=== PATIENT | male | born 1970 | race Caucasian/White ===

== ENCOUNTER 2017-07-01 23:56 | Inpatient (IN) | payer OTHER ==
[~2017-07-01] VITALS: Ht 182.9 cm; Wt 106.7 kg
[2017-07-02] VITALS (10 sets, daily range): BP systolic 135–169; BP diastolic 79–94; PULSE 83–90; RESP 18–20; Ht 182.9 cm; Wt 106.7 kg
[2017-07-02] MEDS ORDERED: VANCOMYCIN IV PER PHARMACY XX SCH (04:00)
[2017-07-02] MEDS ORDERED: LORAZEPAM 2 MG INJ IV PRN (04:00)
[2017-07-02] MEDS ORDERED: ALPRAZOLAM 0.25 MG TAB PO PRN (04:00)
[2017-07-02] MEDS ORDERED: hydrALAzine 20 MG INJ IV PRN (04:00)
[2017-07-02] MEDS ORDERED: ACETAMINOPHEN 325 MG TAB PO PRN (04:00)
[2017-07-02] MEDS ORDERED: ONDANSETRON 4 MG INJ IV PRN (04:00)
[2017-07-02] MEDS ORDERED: GLUCAGON 1 MG INJ IM PRN (04:15)
[2017-07-02] MEDS ORDERED: GLUCOSE GEL 15 GRAM TUBE PO PRN ×2 (04:15)
[2017-07-02] MEDS ORDERED: DEXTROSE 50% 50 ML SYRINGE IV PRN ×2 (04:15)
[2017-07-02] MEDS ORDERED: GLUCOSE GEL 15 GRAM TUBE BUCCAL PRN (04:15)
--- NOTE | 2017-07-02 04:37 | HP ---
Date/Time of Note Date/Time of Note DATE: 07/02/17 TIME: 04:10 Assessment/Plan VTE Prophylaxis VTE Prophylaxis Intervention: heparin Lines/Catheters IV C[facility]ter Type ([facility] Peripheral IV Urinary Cath still in place: No Assessment/Plan Assessment/Plan 1. Status post sepsis (per result from the [facility]): Likely secondary to right foot osteomyelitis -Patient was diagnosed with osteomyelitis 4 years ago and has had surgeries in the past. He has been taking oral antibiotic (rifampin and Bactrim) for the past 1 months and the ulcers on the plantar side of his R foot have been healing well. -He will be placed on IV antibiotic. Will obtain x-ray of his right foot. Will place an ID consult to see if he needs to discharged with IV antibiotic, but again as mentioned above he has been doing well with his oral antibiotics. He follows up regularly with his electrical estimator. Will consider podiatry evaluation in-house. -Follow-up on the blood culture and wound culture results -Wound care consult will be placed 2. Chronic kidney disease vs Acute (prerenal from hypotension) -Creatinine was 1.69 at the outside hospital. He will receive IV fluid. Will place a nephrology consult and obtain a renal ultrasound. 3. Insulin-dependent diabetes -We will check A1c, we will adjust insulin as needed 4. History of hypertension: - Patient was actually hypotensive at the outside hospital. Will not initiate blood pressure medication right at this time. Will monitor for now 5. History of dyslipidemia -We will check fasting lipids in the morning. Continue Lipitor HPI/ROS Admit Date/Time Admit Date/Time Jul 02, 2017 at 01:58 Hx of Present Illness This is a 46-year-old male with a history of hypertension, insulin-dependent diabetes, dyslipidemia, right foot osteomyelitis and probable PTSD who initially presented to [facility] after he was sent by his PMD for evaluation of hypotension. Patient was at. [facility] being screened for PTSD when he was found to be hypotensive. He initially went to [facility] and then transferred here to [facility] because of insurance reason. Patient's only complaint is chronic nausea and also complained of an episode of vomiting yesterday morning. For his chronic nausea, he he saw a passenger booking clerk and had an EGD last week on Wednesday. He does not know the result. Currently he said he is feeling well and denies chest pain, shortness of breath, fever, chills, abdominal pain or urinary urinary symptoms. Patient, for the past 1 month has been taking rifampin and Bactrim for right foot osteomyelitis. He was diagnosed with osteomyelitis 4 years ago and had surgery on a part of the bone on the lateral aspect of his right foot. He has 2 healing ulcers on the plantar aspect of his right foot and well-healed ulcer on the plantar side of his left foot. He follows up regularly with his electrical estimator. At [facility], he had blood pressure as low as 75/51 with a heart rate in the low 100s. His blood pressure normalized after IV fluid boluses. His initial lactic acid was 3.8 which decreased to 2.5. WBC was 3.4, sodium 131, creatinine 1.69, BUN 18 and his magnesium was 1.4. . PMH/Family/Social Past Medical History Medical History: diabetes, high cholesterol, hypertension Past Surgical History Past Surgical Hx: other (Right foot surgery for osteomyelitis) Social History Alcohol Use: none Smoking Status: Never smoker Drug Use: none Exam/Review of Systems Vital Signs Vitals Vital Signs Date Time Temp Pulse Resp B/P Pulse Ox O2 Delivery O2 Flow Rate FiO2 07/02/17 02:13 90 Exam Constitutional: alert, oriented, well developed Head: atraumatic, normocephalic Eyes: EOMI, PERRL Respiratory: clear to auscultation, normal air movement Cardiovascular: other (Tachycardic with regular rhythm) Gastrointestinal: non-tender, soft Medications Medications Current Medications Hydralazine HCl (Apresoline) 10 mg Q4H PRN IV ELEVATED SYSTOLIC BP; Start at 04:00 Ondansetron HCl (Zofran Inj) 4 mg Q6H PRN IV NAUSEA AND/OR VOMITING; Start 07/02 at 04:00 Alprazolam (Xanax) 1 mg Q8H PRN PO ANXIETY; Start 07/02/17 at 04:00 Lorazepam (Ativan) 1 mg Q4H PRN IV ANXIETY; Start 07/02/17 at 04:00 Acetaminophen 650 mg 650 mg Q6H PRN PO PAIN AND OR ELEVATED TEMP; Start at 04:00 Cefepime HCl 50 ml @ 100 mls/hr Q12 IVPB ; Start 07/02/17 at 09:00 Vancomycin HCl/ Sodium Chloride (Vancocin/NS) 500 ml @ 125 mls/hr ONCE ONCE IVPB ; Start 07/02/17 at 05:00; Stop 07/02/17 at 08:59 Diagnostic Test (Pha) (Accu-Chek) 1 ea 02 XX ; Start 07/03/17 at 02:00 Insulin Glargine (Lantus) 10 unit DAILY@08 SC ; Start 07/02/17 at 08:00 Miscellaneous Information 1 ea NOTE XX ; Start 07/02/17 at 04:15 Glucose (Glutose) 15 gm Q15M PRN PO DECREASED GLUCOSE; Start 07/02/17 at 04:15 Glucose (Glutose) 22.5 gm Q15M PRN PO DECREASED GLUCOSE; Start 07/02/17 at 04:15 Dextrose (D50w Syringe) 25 ml Q15M PRN IV DECREASED GLUCOSE; Start 07/02/17 at 04:15 Dextrose (D50w Syringe) 50 ml Q15M PRN IV DECREASED GLUCOSE; Start 07/02/17 at 04:15 Glucagon (Glucagen) 1 mg Q15M PRN IM DECREASED GLUCOSE; Start 07/02/17 at 04:15 Glucose (Glutose) 15 gm Q15M PRN BUCCAL DECREASED GLUCOSE; Start 07/02/17 at 04: 15 FELIPA NAIR MD Jul 02, 2017 04:21
[2017-07-02] MEDS ORDERED: VANCOMYCIN 2 GM in SOD CHLORIDE 0.9% 500 ML IVPB ONE (05:00)
[2017-07-02] MEDS: INSULIN ASPART [NOVOLOG] 3 ML PEN SC SCH ×2 (08:00→11:53)
[2017-07-02] MEDS ORDERED: INSULIN GLARGINE [LANtus] 3 ML PEN SC SCH (08:00)
[2017-07-02 08:50] LABS: BASOPHILS % 0.5 % (0.0-2.0); EOSINOPHILS # 0.2 10^3/ul (0.0-0.5); EOSINOPHILS % 2.6 % (0.0-7.0); HEMATOCRIT 32.3 % (42.0-52.0); HEMOGLOBIN 10.5 g/dl (14.0-18.0); LYMPHOCYTES % 32.7 % (15.0-51.0); MEAN CORPUSCULAR HGB CONC 32.5 g/dl (32.0-37.0); MEAN CORPUSCULAR VOLUME 86.1 fl (82.0-101.0); MEAN PLATELET VOLUME 9.5 fl (7.4-10.4); MONOCYTE # 0.4 10^3/ul (0.3-0.9); MONOCYTES % 5.6 % (0.0-11.0); NEUTROPHIL # 3.6 10^3/ul (1.6-7.5); NEUTROPHILS % 58.4 % (39.0-77.0); PLATELET COUNT 182 10^3/UL (140-415); RED BLOOD COUNT 3.75 10^6/ul (4.70-6.10); RED CELL DISTRIBUTION WIDTH 12.4 % (11.5-14.5); WHITE BLOOD COUNT 6.2 10^3/ul (4.8-10.8)
[2017-07-02] MEDS ORDERED: CEFEPIME 1GM/50 ML (PMX) 50 ML IVPB SCH (09:00)
[2017-07-02] MEDS ORDERED: HEPARIN 5,000 UNIT/0.5 ML VIAL SC SCH (09:00)
[2017-07-02 09:13] LABS: CHOL/HDL RATIO 4.8 RATIO
[2017-07-02 09:17] LABS: CALCIUM 7.9 mg/dl (8.4-10.2); CREATININE 1.12 mg/dl (0.61-1.24); MAGNESIUM 1.4 mg/dl (1.7-2.5); PHOSPHORUS 2.8 mg/dl (2.5-4.9); POTASSIUM 4.5 mmol/L (3.5-5.1)
[2017-07-02 09:24] LABS: ADD UMIC NO; UR ASCORBIC ACID NEGATIVE (NEGATIVE); UR BILIRUBIN (Dip) NEGATIVE (NEGATIVE); UR BLOOD (Dip) NEGATIVE (NEGATIVE); UR CLARITY CLEAR (CLEAR); UR COLOR YELLOW (YELLOW); UR GLUCOSE (Dip) 1+ mg/dL (NEGATIVE); UR KETONES (Dip) NEGATIVE (NEGATIVE); UR LEUKOCYTE ESTERASE (Dip) NEGATIVE Leu/ul (NEGATIVE); UR NITRITE (Dip) NEGATIVE (NEGATIVE); UR SPECIFIC GRAVITY (Dip) 1.013 (1.003-1.030); UR TOTAL PROTEIN (Dip) NEGATIVE (NEGATIVE); UR UROBILINOGEN (Dip) NEGATIVE (NEGATIVE)
--- NOTE | 2017-07-02 09:42 | RADRPT ---
PROCEDURE: XR bilateral feet. CLINICAL INDICATION: Bilateral foot pain. TECHNIQUE: Three views of each foot. Frontal, oblique, and lateral. Total of six views. COMPARISON: None. 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 There is no fracture or dis location. There is no lytic or blastic lesion. The articular surfaces are intact. Vascular calcif ications are present consistent with atherosclerosis. On the left side, there is no fracture or dislocation. There is no lytic or blastic lesion. The ar ticular surfaces are intact. Vascular calcifications are present consistent with atherosclerosis. IMPRESSION: 1. Atherosclerosis. 2. 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 3. Otherwise unremarkable images of both feet. RPTAT: QQ .Beto Dias MD, MD Date Time Electronically viewed and signed by .Beto Dias MD, on 07/02/2017 09:42 .R/
[2017-07-02] MEDS ORDERED: MAGNESIUM SULFATE 2 GM/50 ML 50 ML IVPB ONE (10:30)
--- NOTE | 2017-07-02 14:15 | CONS ---
DATE OF ADMISSION: 07/02/2017 DATE OF CONSULTATION: 07/02/2017 REASON FOR CONSULTATION: Acute kidney injury. REFERRING PHYSICIAN:: Dr. Burk HISTORY OF PRESENT ILLNESS: This is a 46-year-old male with a past medical history of hypertension, diabetes, dyslipidemia, history of right foot osteomyelitis, who presented to [facility] by his primary care physician for evaluation of hypertension. The patient was initially at [facility] for PTSD and was found to be hypertensive, was taken to the hospital. The patient was then transferred from [facility] to [facility] for . The patient states he has not been feeling well. Denies any chest pain, shortness of breath, fevers, chills. The patient recently has been taking rifampin and Bactrim for right foot osteomyelitis which was diagnosed 4 years ago. In terms of patient's renal history, the patient states he has had normal renal function. The patient's renal function at the outside hospital showed sodium 131, creatinine 1.69, BUN 18. The patient denies any hemoptysis, hematemesis, hematochezia. PAST MEDICAL HISTORY: History of diabetes, hypertension, dyslipidemia. PAST SURGICAL HISTORY: Right foot surgery. SOCIAL HISTORY: Does not drink, smoke, or do drugs. FAMILY HISTORY: Noncontributory. MEDICATION: The patient's medications have been reviewed. REVIEW OF SYSTEMS: Fourteen point review of systems conducted. Pertinent positives in HPI, otherwise negative. PHYSICAL EXAMINATION: VITAL SIGNS: Blood pressure is 142/92, respirations 20, pulse 89, temperature 98.1. HEENT: Head is normocephalic. Pupils are reactive to light. NECK: Supple. HEART: Regular rate. LUNGS: Diminished breath sounds at the base. ABDOMEN: Soft, nontender to palpation. No rebound or guarding. EXTREMITIES: Negative for clubbing, cyanosis. No edema. Positive right foot wound. DERMATOLOGIC: No rashes. MUSCULOSKELETAL: No joint effusion. LABORATORY: Shows a bland urinalysis. Sodium 136, potassium 4.5, BUN 19, creatinine 1.2, magnesium 1.4. Hemoglobin A1c 7.7. White count 6.2, hemoglobin 10.5, hematocrit 32.3, platelet count 182. Imaging studies: Foot x-ray reviewed showed congenital deformity, otherwise unremarkable. ASSESSMENT AND PLAN: This is a 46-year-old male who presents with: 1. Nonoliguric acute kidney injury with unknown baseline creatinine. Etiology is likely hemodynamics, possible Bactrim effect. The patient's renal function has improved with IV fluids and discontinuing Bactrim. The patient's urinalysis is bland. At this point, will check urine electrolytes. Otherwise continue supportive care. Renally dose medications. Avoid nephrotoxins. 2. Anemia. Monitor H and H levels. 3. Mineral bone disorder. Monitor calcium and phosphorus levels. 4. Hypomagnesemia. Replete magnesium sulfate. 5. Hypertension. SIRS. Possible sepsis. The patient is on broad-spectrum antibiotics, status post IV fluids. Will continue to monitor. 6. History of right foot osteomyelitis. 7. Diabetes. Continue Accu-Chek and sliding scale. 8. History of hypertension. 9. Dyslipidemia. Continue statin therapy. 10. Thank you, Dr. Vital, for this interesting consult. It will be a pleasure to follow the patient with you throughout the hospital course. Dictated By: Raj Mann DO /arcadio/ladonna /Document#: [id number]
[2017-07-02] MEDS ORDERED: MAG SULFATE 2GM IN 50 ML IVPB ONE (16:00)
[2017-07-02] MEDS ORDERED: MAGNESIUM SULFATE (GM) 50% 2 ML INJ IM ONE (16:00)
[2017-07-02] MEDS ORDERED: MAGNESIUM SULFATE 4 GM/100 ML 100 ML IVPB ONE (16:00)
--- NOTE | 2017-07-02 16:13 | PDOCDIS ---
Discharge Instructions CONDITION Patient Condition: Good HOME CARE INSTRUCTIONS: Special Diet: Diabetic diet ACTIVITY: Activity Restrictions: No Restrictions FOLLOW UP/APPOINTMENTS Follow-up Plan FOLLOW UP WITH YOUR PRIMARY CARE PHYSICIAN IN 1-2 WEEKS YOJANA REAL Jul 02, 2017 16:13
--- NOTE | 2017-07-02 16:40 | DS ---
Date/Time of Note Date/Time of Note DATE: 07/02/17 TIME: 16:30 Discharge Summary Admission/Discharge Info Admit Date/Time Jul 02, 2017 at 01:58 Discharge Date/Time July 02, 2017 Discharge Diagnosis 1. Status post sepsis (per result from the [facility]): Likely secondary to right foot osteomyelitis-resolved -Continue home p.o. antibiotics, follow-up with deputy court in clinic -X-ray of the foot shows significant findings 2. Acute on chronic kidney disease likely to dehydration-resolved with IV fluid -Nephrology consultation appreciated -Outpatient monitoring 3. Insulin-dependent diabetes with neuropathy and gastroparesis -A1c at 7.7, continue home regimen 4. Nausea and vomiting secondary to gastroparesis from diabetes -Patient prescribed Reglan by his ceo but has not picked up the prescription as of yet, patient told to pick it up 5. History of dyslipidemia -We will check fasting lipids in the morning. Continue Lipitor 6. History of hypertension: BP currently stable without medication Patient Condition: Good Hospital Course Patient is a 46-year-old male with a history of hypertension, insulin-dependent diabetes, dyslipidemia, right foot osteomyelitis and probable PTSD who initially presented to [facility] after he was sent by his PMD for evaluation of hypotension. Patient has been having a lot of nausea , patient appears to been diagnosed with gastroparesis and was prescribed Reglan but has not picked that up as of yet. Patient was transferred over with diagnosis of sepsis, of note patient had no leukocytosis or fever on arrival to [facility]. Patient is on chronic p.o. antibiotics for his right foot infection. Patient x-ray of the foot showed no significant findings. Patient' s nausea vomiting resolved, patient magnesium was low and was replenished. On day of discharge patient had no evidence of sepsis he had no further acute complaints. Patient was found to be stable for discharge with outpatient follow -up with his PCP, deputy court and ceo. On the day of discharge patient's vitals, labs and physical exam are stable and his questions are answered. Home Meds No Active Prescriptions or Reported Meds Primary Care Provider Care Physician No Primary Time spent on discharge: > 30 minutes YOJANA REAL Jul 02, 2017 16:40
[2017-07-02] MEDS ORDERED: VANCOMYCIN 1.5 GM in SOD CHLORIDE 0.9% 250 ML IVPB SCH (18:00)
[2017-07-02] MEDS ORDERED: ATORVASTATIN 20 MG TAB PO SCH (21:00)
[2017-07-03] MEDS ORDERED: ACCU-CHEK XX SCH ×2 (02:00)
[2017-07-05 14:23] LABS: MICROALBUMIN 3.2 mg/dL
== END 2017-07-02 18:42 | disposition home or self-care (01) | DRG 872 ==
LOC: MS4 07-02 01:58
PROVIDERS: ADMIT Internal Medicine; ATTEND Internal Medicine
DX: A41.9 Sepsis, unspecified organism (principal); N17.9 Acute kidney failure, unspecified; E11.22 Type 2 diabetes mellitus with diabetic chronic kidney disease; M86.8X7 Other osteomyelitis, ankle and foot; I12.9 Hypertensive chronic kidney disease with stage 1 through stage 4 chronic kidney disease, or unspecified chronic kidney disease; N18.9 Chronic kidney disease, unspecified; Z79.4 Long term (current) use of insulin; E78.5 Hyperlipidemia, unspecified; E78.00 Pure hypercholesterolemia, unspecified
CPT/HCPCS: 80048; 80061; 81003; 82043; 82962; 83036; 83735; 84100; 84155; 84300; 85025; 87070; J0692; J1644; J1815; J3370; J3475; J7040; J7050

== ENCOUNTER 2017-10-01 15:41 | Observation (INO) | payer OTHER ==
[~2017-10-01] VITALS: Ht 182.9 cm; Wt 101.5 kg
[2017-10-01 18:20] VITALS: PULSE 105
[2017-10-01] MEDS ORDERED: NACL 0.9% 3 ML SYG IV SCH (18:30)
[2017-10-01] MEDS ORDERED: PENDING SANTYL ORDER FOR WOUND CARE XX PRN (19:00)
--- NOTE | 2017-10-01 19:18 | HP ---
Date/Time of Note Date/Time of Note DATE: 10/01/17 TIME: 18:45 Assessment/Plan VTE Prophylaxis VTE Prophylaxis Intervention: heparin Assessment/Plan Chief Complaint/Hosp Course 47 yo male with DMII, diabetic neuropathy, gastroparesis, CKD II, PVD/OM of foot presenting after syncope 2 days ago Syncope is almost certainly orthostatic by history likely 2/2 diabetic neuropathy. Has evidence of dysautonomia with gastroparesis and seems to have a resting tachycardia which is consistent. No respiratory symptoms to suggest PE. Unlikley this was a primary cardiac event given lack of chest symptoms. Perhaps a bit hypovolemic from poor PO intake given gastroparesis Not taking any BP meds currently Plan: - Monitor on telemetry overnight to r/o arrythmia. - IV NS as needed for hypotension - TTE given q waves - Counseled on lifestyle modifications to prevent orthostasis Continue insulin for DMII Continue bactrim/rifampin for OM of foot Problems: HPI/ROS Admit Date/Time Admit Date/Time Oct 01, 2017 at 17:51 Hx of Present Illness 47 M with h/o DMII complicated by neuropathy, OM of feet, gastroparesis, CKD II presents for evaluation of syncope which occured 2 days ago in the evening. He was sitting down at home feeling normal, then stood up, took a few steps outside then felt dizzy and syncopized, hitting his head on an iron gate causing laceration. This occurred about midnight. Friends helped him up and took him to bed, felt dizzy. Next morning felt nausous which he attributes to his gastroparesis and stayed in bed most of the day. Today went to his doctors appointment at [place] and reported his symptoms. Said he was referred to ED by the clinic doctor. BP in clinic was low, he resports systolic to 80s, tachy to low 100s. Taken to [place] where he was tachy to 108, BP 117/80 then 90/59. CT head/neck normal. EKG sinus tach w q in III/aVF. Labs showed Creat 1.6, Na 133 , Glu 87, troponin negative. Says he was given 1 L IVF which made him feel much better. Says occasoinally gets dizzy w standing. Eats very littel he says because of gastroparesis, only 1 meal a day. Feels well at rest. Dizzy w standing. Denies any chest symptoms at all, no CP, no palps, no SOB. PMH/Family/Social Past Medical History DMII CKD II Diabetic neuropathy Gastroparesis OM of foot s/p amputation Past Surgical History Past Surgical Hx: other Social History Alcohol Use: none Smoking Status: Never smoker Drug Use: none Exam/Review of Systems Vital Signs Vitals Vital Signs Date Time Temp Pulse Resp B/P Pulse Ox O2 Delivery O2 Flow Rate FiO2 10/01/17 18:20 105 Exam Exam Pleasant, in NAD Tachy, regular, no m/r/g Lungs clear Abdomen soft nt nd R foot w amputation/wound Orthostatics not attempted /2 diziness Constitutional: alert, oriented, well developed Psych: nl mood/affect, no complaints Head: atraumatic, normocephalic Eyes: EOMI, PERRL, nl conjunctiva, nl lids, nl sclera ENMT: nl external ears & nose, nl lips & teeth, nl nasal mucosa & septum Neck: non-tender, supple Respiratory: clear to auscultation, normal air movement Cardiovascular: nl pulses, regular rate and rhythm Gastrointestinal: nl liver, spleen, non-tender, soft Musculoskeletal: nl extremities to inspection Extremities: normal pulses Neurological: SALES AND SERVICE SPECIALIST II-XII intact, nl mental status, nl speech, nl strength Skin: nl turgor, No rash or lesions Lymph: nl lymph nodes Medications Medications Current Medications Enoxaparin Sodium (Lovenox) 40 mg DAILY SC ; Start 10/02/17 at 09:00 JO MCDANIEL MD Oct 01, 2017 19:18
[2017-10-01 19:28] LABS: BASOPHILS % 0.2 % (0.0-2.0); EOSINOPHILS # 0.3 10^3/ul (0.0-0.5); EOSINOPHILS % 3.2 % (0.0-7.0); HEMOGLOBIN 9.7 g/dl (14.0-18.0); LYMPHOCYTES # 2.4 10^3/ul (0.8-2.9); LYMPHOCYTES % 29.1 % (15.0-51.0); MEAN CORPUSCULAR HEMOGLOBIN 30.4 pg (29.0-33.0); MEAN CORPUSCULAR HGB CONC 33.4 g/dl (32.0-37.0); MEAN CORPUSCULAR VOLUME 90.9 fl (82.0-101.0); MEAN PLATELET VOLUME 9.6 fl (7.4-10.4); MONOCYTE # 0.7 10^3/ul (0.3-0.9); MONOCYTES % 8.4 % (0.0-11.0); NEUTROPHIL # 4.8 10^3/ul (1.6-7.5); NEUTROPHILS % 58.9 % (39.0-77.0); PLATELET COUNT 199 10^3/UL (140-415); RED BLOOD COUNT 3.19 10^6/ul (4.70-6.10); RED CELL DISTRIBUTION WIDTH 12.8 % (11.5-14.5); WHITE BLOOD COUNT 8.2 10^3/ul (4.8-10.8)
[2017-10-01 19:31] LABS: ANION GAP 15 (8-16); BLOOD UREA NITROGEN 22 mg/dl (7-20); CARBON DIOXIDE 21 mmol/L (21-31); CHLORIDE 104 mmol/L (97-110); CREATININE 1.54 mg/dl (0.61-1.24); GLUCOSE 127 mg/dl (70-220); POTASSIUM 4.7 mmol/L (3.5-5.1); SODIUM 135 mmol/L (135-144)
[2017-10-01 19:45] LABS: TROPONIN-I < 0.012 ng/ml (0.00-0.12)
[2017-10-01 20:00] VITALS: BP 116/71; RESP 19
[2017-10-01] MEDS ORDERED: GLUCOSE GEL 15 GRAM TUBE BUCCAL PRN (20:00)
[2017-10-01] MEDS ORDERED: GLUCOSE GEL 15 GRAM TUBE PO PRN ×2 (20:00)
[2017-10-01] MEDS ORDERED: DEXTROSE 50% 50 ML SYRINGE IV PRN ×2 (20:00)
[2017-10-01] MEDS ORDERED: GLUCAGON 1 MG INJ IM PRN (20:00)
[2017-10-01 20:17] VITALS: PULSE 103
[2017-10-01] MEDS: INSULIN ASPART [NOVOLOG] 3 ML PEN SC SCH (21:00)
[2017-10-01 23:55] VITALS: BP 109/63; RESP 20
[2017-10-02] VITALS (7 sets, daily range): BP systolic 115–121; BP diastolic 74–80; PULSE 85–96; RESP 18
[2017-10-02] MEDS ORDERED: ACETAMINOPHEN 325 MG TAB PO PRN
[2017-10-02] MEDS ORDERED: ACCU-CHEK XX SCH (02:00)
[2017-10-02 06:54] LABS: BASOPHILS % 0.4 % (0.0-2.0); EOSINOPHILS # 0.2 10^3/ul (0.0-0.5); EOSINOPHILS % 2.8 % (0.0-7.0); HEMATOCRIT 32.3 % (42.0-52.0); HEMOGLOBIN 10.3 g/dl (14.0-18.0); LYMPHOCYTES # 2.6 10^3/ul (0.8-2.9); MEAN CORPUSCULAR HEMOGLOBIN 28.9 pg (29.0-33.0); MEAN CORPUSCULAR HGB CONC 31.9 g/dl (32.0-37.0); MEAN CORPUSCULAR VOLUME 90.7 fl (82.0-101.0); MEAN PLATELET VOLUME 9.6 fl (7.4-10.4); MONOCYTE # 0.6 10^3/ul (0.3-0.9); MONOCYTES % 7.7 % (0.0-11.0); NEUTROPHIL # 3.8 10^3/ul (1.6-7.5); NEUTROPHILS % 52.8 % (39.0-77.0); PLATELET COUNT 228 10^3/UL (140-415); RED BLOOD COUNT 3.56 10^6/ul (4.70-6.10); WHITE BLOOD COUNT 7.3 10^3/ul (4.8-10.8)
[2017-10-02 07:29] LABS: ALBUMIN 4.2 g/dl (3.3-4.9); ALBUMIN/GLOBULIN RATIO 1.31; BILIRUBIN,INDIRECT 0.1 mg/dl (0-1.1); BILIRUBIN,TOTAL 0.1 mg/dl (0.2-1.3); CALCIUM 8.3 mg/dl (8.4-10.2); CREATININE 1.29 mg/dl (0.61-1.24); TOTAL PROTEIN 7.4 g/dl (6.1-8.1)
[2017-10-02] MEDS: INSULIN ASPART [NOVOLOG] 3 ML PEN SC SCH ×4 (07:55→11:50)
[2017-10-02] MEDS ORDERED: INSULIN GLARGINE [LANtus] 3 ML PEN SC SCH (08:00)
[2017-10-02] MEDS ORDERED: ENOXAPARIN 40 MG/0.4 ML SYG SC SCH (09:00)
[2017-10-02] MEDS ORDERED: SOD CHLORIDE 0.9% 1,000 ML IV ONE (10:30)
[2017-10-02] MEDS ORDERED: METF-731 PO (12:31)
[2017-10-02] MEDS ORDERED: LANT3I SC (12:31)
--- NOTE | 2017-10-02 12:34 | PDOCDIS ---
Discharge Instructions DIAGNOSIS Discharge Diagnosis Orthostatic hypotension CONDITION Patient Condition: Good HOME CARE INSTRUCTIONS: Special Diet: REGULAR FOLLOW UP/APPOINTMENTS Follow-up Plan Your diabetes is being too aggressively treated, leading to low blood sugar. You should cut your lantus dose in half to just once daily until you can see your rubber chemist. Here, your A1C was found to be 5.8 and your blood sugar was in the 40s at [place] meaning that you are on too much insulin. It is improtant to check your blood sugar as your doctor as instructed you to do. It is also imporatant for you to stay hydrated and recognize that you are prone to fainting when you stand up quickly or stay standing for a long period of time You should also talk to your doctor about taking a baby aspirin everyday as well as a medicine for your cholesterol called a statin Please see your primary doctor as soon as possible after you are discharged JO MCDANIEL MD Oct 02, 2017 12:34
--- NOTE | 2017-10-02 12:42 | DS ---
Date/Time of Note Date/Time of Note DATE: 10/02/17 TIME: 12:34 Discharge Summary Admission/Discharge Info Admit Date/Time Oct 01, 2017 at 17:51 Discharge Date/Time Discharge Diagnosis Orthostatic hypotension Patient Condition: Good Hx of Present Illness 47 M with h/o DMII complicated by neuropathy, OM of feet, gastroparesis, CKD II presents for evaluation of syncope which occured 2 days ago in the evening. He was sitting down at home feeling normal, then stood up, took a few steps outside then felt dizzy and syncopized, hitting his head on an iron gate causing laceration. This occurred about midnight. Friends helped him up and took him to bed, felt dizzy. Next morning felt nausous which he attributes to his gastroparesis and stayed in bed most of the day. Today went to his doctors appointment at [place] and reported his symptoms. Said he was referred to ED by the clinic doctor. BP in clinic was low, he resports systolic to 80s, tachy to low 100s. Taken to [place] where he was tachy to 108, BP 117/80 then 90/59. CT head/neck normal. EKG sinus tach w q in III/aVF. Labs showed Creat 1.6, Na 133 , Glu 87, troponin negative. Says he was given 1 L IVF which made him feel much better. Says occasoinally gets dizzy w standing. Eats very littel he says because of gastroparesis, only 1 meal a day. Feels well at rest. Dizzy w standing. Denies any chest symptoms at all, no CP, no palps, no SOB. Hospital Course Patient was found to have ANITHA from hypovolemia which corrected with fluids He was monitored on telemetry without arrythmia He reports taking lantus 26 untis BID and aspart before meals. His sugars were low into the 70s and to 40s at OSH. His A1C was found to be 5.9. He stated that he has been eating less because of gastroparesis and thus his sugars are getting low. He was counseled to cut his lantus to only once daily for the coming time and monitor his sgars in the AM and before eating. He will see his bulk truck driver and primary care doctor at the [place] in the coming weeks with fingerstick log He was also found to be mildly orthostatic which was thought to be partially from hypovolemia, which was corrected, and partially from DM autonomic neuropathy. He was counseled on importance of standing up slowly and recognizing symptoms of orthostasis to avoid syncope He was continued on rifapmin and bactrim for osteomyelitis at discharge Home Meds No Active Prescriptions or Reported Meds Follow-up Plan Your diabetes is being too aggressively treated, leading to low blood sugar. You should cut your lantus dose in half to just once daily until you can see your bulk truck driver. Here, your A1C was found to be 5.8 and your blood sugar was in the 40s at [place] meaning that you are on too much insulin. It is improtant to check your blood sugar as your doctor as instructed you to do. It is also imporatant for you to stay hydrated and recognize that you are prone to fainting when you stand up quickly or stay standing for a long period of time You should also talk to your doctor about taking a baby aspirin everyday as well as a medicine for your cholesterol called a statin Please see your primary doctor as soon as possible after you are discharged Primary Care Provider Care Physician No Primary Pending Labs Laboratory Tests Test 10/01/17 18:50 10/01/17 18:52 10/01/17 21:00 10/02/17 05:53 White Blood Count 8.210^3/ul (4.8-10.8) 7.310^3/ul (4.8-10.8) Red Blood Count 3.1910^6/ul (4.70-6.10) 3.5610^6/ul (4.70-6.10) Hemoglobin 9.7g/dl (14.0-18.0) 10.3g/dl (14.0-18.0) Hematocrit 29.0% (42.0-52.0) 32.3% (42.0-52.0) Mean Corpuscular Volume 90.9fl (82.0-101.0) 90.7fl (82.0-101.0) Mean Corpuscular Hemoglobin 30.4pg (29.0-33.0) 28.9pg (29.0-33.0) Mean Corpuscular Hemoglobin Concent 33.4g/dl (32.0-37.0) 31.9g/dl (32.0-37.0) Red Cell Distribution Width 12.8% (11.5-14.5) 13.0% (11.5-14.5) Platelet Count 79456^3/UL (140-415) 98812^3/UL (140-415) Mean Platelet Volume 9.6fl (7.4-10.4) 9.6fl (7.4-10.4) Neutrophils % 58.9% (39.0-77.0) 52.8% (39.0-77.0) Lymphocytes % 29.1% (15.0-51.0) 36.0% (15.0-51.0) Monocytes % 8.4% (0.0-11.0) 7.7% (0.0-11.0) Eosinophils % 3.2% (0.0-7.0) 2.8% (0.0-7.0) Basophils % 0.2% (0.0-2.0) 0.4% (0.0-2.0) Nucleated Red Blood Cells % 0.0/100WBC (0.0-0.0) 0.0/100WBC (0.0-0.0) Neutrophils # 4.810^3/ul (1.6-7.5) 3.810^3/ul (1.6-7.5) Lymphocytes # 2.410^3/ul (0.8-2.9) 2.610^3/ul (0.8-2.9) Monocytes # 0.710^3/ul (0.3-0.9) 0.610^3/ul (0.3-0.9) Eosinophils # 0.310^3/ul (0.0-0.5) 0.210^3/ul (0.0-0.5) Basophils # 0.010^3/ul (0.0-0.1) 0.010^3/ul (0.0-0.1) Nucleated Red Blood Cells # 0.010^3/ul (0.0-0.0) 0.010^3/ul (0.0-0.0) Sodium Level 135mmol/L (135-144) 140mmol/L (135-144) Potassium Level 4.7mmol/L (3.5-5.1) 4.0mmol/L (3.5-5.1) Chloride Level 104mmol/L (97-110) 106mmol/L (97-110) Carbon Dioxide Level 21mmol/L (21-31) 19mmol/L (21-31) Anion Gap 15 (8-16) 19 (8-16) Blood Urea Nitrogen 22mg/dl (7-20) 18mg/dl (7-20) Creatinine 1.54mg/dl (0.61-1.24) 1.29mg/dl (0.61-1.24) Glucose Level 127mg/dl (70-220) 67mg/dl (70-220) Calcium Level 8.0mg/dl (8.4-10.2) 8.3mg/dl (8.4-10.2) Troponin I < 0.012ng/ml (0.00-0.12) Bedside Glucose 94mg/dL (70-220) Hemoglobin A1c 5.9% (0-5.9) Total Bilirubin 0.1mg/dl (0.2-1.3) Direct Bilirubin 0.00mg/dl (0.00-0.20) Indirect Bilirubin 0.1mg/dl (0-1.1) Aspartate Amino Transf (AST/SGOT) 36IU/L (15-46) Alanine Aminotransferase (ALT/SGPT) 50IU/L (13-69) Alkaline Phosphatase 90IU/L (42-121) Total Protein 7.4g/dl (6.1-8.1) Albumin 4.2g/dl (3.3-4.9) Globulin 3.20g/dl (1.3-3.2) Albumin/Globulin Ratio 1.31 Test 10/02/17 08:38 10/02/17 09:00 10/02/17 09:30 10/02/17 12:20 Bedside Glucose 68mg/dL (70-220) 82mg/dL (70-220) 94mg/dL (70-220) 96mg/dL (70-220) JO MCDANIEL MD Oct 02, 2017 12:42
--- NOTE | 2017-10-03 11:54 | RADRPT ---
Echocardiogram Report Patient Name: KELLY NICHOLS Gender: Male Date: 1970 Study Date: 02-Oct-2017 Admissions Assistant: ANI Location: [id number] Ref. Physician: JO MCDANIEL Quality: Good Procedures: Transthoracic echocardiogram with complete 2D, M-Mode, and doppler examination. Indications: Syncope. 2D/M Mode Doppler Measurement Value Normal Ranges Measurement Value Normal Ranges AoR Diam MM 3.2 cm MICKEY Vmax 2.8 cm2 ACS MM 2.0 cm MICKEY VTI 2.8 cm2 LA/Ao MM 1.2 AV Mean [place] 0.8 m/sec LA Dimen MM 3.7 cm AV Mean PG 2.9 mmHg LVIDd 2D 4.9 3.5 - 5.6 cm AV Peak [place] 1.1 m/sec LVIDs 2D 3.5 2.1 - 4.1 cm AV Peak PG 4.7 mmHg LVPWd 2D 1.0 0.6 - 1.1 cm AV VTI 19.2 cm IVSd 2D 1.1 0.6 - 1.1 cm LVOT Peak [place] 0.9 m/sec EDV 2D 113.6 cm3 LVOT Peak PG 3.1 mmHg ESV 2D 43.6 cm3 MV E Peak [place] 0.5 m/sec EF 2D 55.0 50.0 - 65.0 % MV A Peak [place] 0.8 m/sec LVOT Diam 2.1 cm MV E/A 0.6 MV Decel Time 158 msec MV Decel [place] 3 MV E/A 0.6 TR Peak [place] 2.4 m/sec TR Peak PG 22.6 mmHg RVSP 33.0 mmHg RA Pressure 10.0 Findings Left Ventricle: Normal left ventricular systolic function. Normal left ventricular cavity size. Normal left ventricular wall thickness. Ejection fraction is visually estimated at 55 %. Tissue Doppler/Mitral Doppler indices are consistent with impaired relaxation (Stage I diastolic dysfunction). Right Ventricle: Normal right ventricular size. Normal right ventricular systolic function. Left Atrium: The left atrium is normal in size. Right Atrium: The right atrium is normal in size. Mitral Valve: Normal appearance and function. There is trace to mild mitral valve regurgitation. Aortic Valve: Normal appearance of the aortic valve. No significant aortic stenosis or insufficiency. Tricuspid Valve: Normal appearance of the tricuspid valve. Estimated peak PA systolic pressure 33 mmHg. There is mild tricuspid regurgitation. Pulmonic Valve: Normal pulmonic valve appearance. Pericardium: Normal pericardium with no significant pericardial effusion. Aorta: Normal aortic root. IVC: The IVC is not well visualized. Conclusions 1.Normal left ventricular systolic function. Normal left ventricular cavity size. Normal left ventricular wall thickness. Ejection fraction is visually estimated at 55 %. Tissue Doppler/Mitral Doppler indices are consistent with impaired relaxation (Stage I diastolic dysfunction). Electronically Signed By: Scott Roy 03-Oct-2017 11:54:19 -0800 Patient Name: KELLY NICHOLS Study Date: 02-Oct-2017 [id number]
--- NOTE | 2017-10-05 14:51 | RADRPT ---
Vent Rate: 94 bpm RR Interval: 0 msec AL Interval: 134 msec QRS Duration: 92 msec QT Interval: 348 msec QTC Interval: 435 msec P-R-T [place]: 28 - 18 - 47 degrees Normal sinus rhythm Normal ECG Electronically Signed By: Sid Burgess [id number]
== END 2017-10-02 14:10 | disposition home or self-care (01) ==
LOC: TEL 17:51 → INTOOBSV 17:51
PROVIDERS: ADMIT Internal Medicine; ATTEND Internal Medicine
DX: I95.1 Orthostatic hypotension (principal); E11.40 Type 2 diabetes mellitus with diabetic neuropathy, unspecified; N18.2 Chronic kidney disease, stage 2 (mild); Z89.431 Acquired absence of right foot; Z79.4 Long term (current) use of insulin
CPT/HCPCS: 80048; 80053; 82962; 83036; 84484; 85025; 93005; 93306; J1650; J1815; J7030; Z7500; Z7610; G0378